=== PATIENT | female | born 1975 | race Asian ===

== ENCOUNTER 2017-03-30 07:56 | Day surgery (SDC) | payer BC, SELFPAY ==
[2017-03-27 12:58] VITALS: BMI 16.4
[2017-03-30] VITALS (14 sets, daily range): BP systolic 87–145; BP diastolic 43–68; PULSE 47–78; RESP 15–26; TEMP 37.1–37.2; O2SAT 98–100
[2017-03-30 09:11] LABS: Urine Pregnancy, HCG Qual. Negative (Negative)
--- NOTE | 2017-03-30 09:32 | HMH.PROC ---
[facility] Procedure Note Procedure Note:: Colonoscopy Procedure Report: Colonoscopy with cold biopsies Endoscopist: Govind Nelson II, MD Referring physician: Antonio Mendoza MD Date of Procedure: March 30, 2017 Equipment: Olympus 180 variable stiffness pediatric colonoscope Sedation: Fentanyl 100 mg IV/ Versed 7 mg IV Indication: Mrs. Toribio is a 41-year-old [place] female who has had abdominal pain primarily in the right lower abdomen but some left lower abdominal discomfort. She does have some straining and incomplete defecation. She has noted some external hemorrhoids and some bright red bleeding from internal hemorrhoids. She did have some testing in her country of [facility] but has not had any prior colonoscopy. She did have a transvaginal ultrasound by her primary care physician which was negative. She does state that her pain is worsened after her menstrual cycle. The patient reports no weight loss or change in bowel habits. She reports no family history of colon cancer but her grandfather had liver cancer. Procedure: Prior to the procedure, a history and physical exam was performed, and patient's medications and allergies were reviewed. The risks, benefits and alternatives of the sedation and procedure were discussed with the patient. All questions were answered and informed consent was obtained. The patient was brought to the procedure room. Patient identification and proposed procedure were verified by the physician and the nurse. The patient was placed in a left lateral decubitus position and the scope was passed under direct vision. Throughout the procedure, the patient's blood pressure, pulse, and oxygen saturations were monitored continuously. The colonoscopy was accomplished without difficulty. The patient tolerated the procedure well. Findings: On digital rectal examination there was normal rectal tone. There were no external hemorrhoids except for hemorrhoidal tags. The colonoscope was introduced through the anal canal to the rectum and advanced to the cecum. The ileocecal valve and appendiceal orifice were identified. The scope was advanced a short distance into the ileum which appeared grossly normal. The scope was then withdrawn into the colon. There were a few isolated diverticuli in the right colon. The remainder of the tragus descending and sigmoid colon were normal. In the proximal rectum near the rectosigmoid junction was rectal ulceration that was superficial and ipsilateral with minimal margination or irregularity (appears as benign ulcers). Multiple biopsies were obtained. Digitally, there was a very angulated puborectalis angle and no mass palpable in this region. Upon retroflexion there were grade 1 internal hemorrhoids. Impression: 1. Rectal/rectosigmoid benign appearing ulceration with probable SRUS (solitary rectal ulcer syndrome) and angulated puborectalis 2. Mild right-sided diverticulosis 3. Small grade 1 internal hemorrhoids with external hemorrhoidal tags Plan: Solitary rectal ulcer syndrome is an uncommon benign disease characterized by histologic abnormalities that hopefully are delineated on biopsies which I have obtained. Man and women are affected equally. Clinical features include rectal bleeding with mucus and straining. Some persons often feel abdominal pain and incomplete defecation. She has all of these symptoms. There is often diffuse collagen deposition in the lamina propria with abnormal smooth muscle fiber extensions. The etiology remains obscure and is often associated with pelvic floor disorders. The choice of treatment often depends upon the severity of the symptoms. I would encourage high-fiber diet, avoidance of straining and bulk fiber supplementation. We will discuss dietary measures. I would consider pelvic floor physical therapy.
--- NOTE | 2017-03-30 09:41 | P.PCN_ITS ---
[facility] Procedure Note Procedure Note:: Colonoscopy Procedure Report: Colonoscopy with cold biopsies Endoscopist: Govind Nelson II, MD Referring physician: Antonio Mendoza MD Date of Procedure: March 30, 2017 Equipment: Olympus 180 variable stiffness pediatric colonoscope Sedation: Fentanyl 100 mg IV/ Versed 7 mg IV Indication: Mrs. Toribio is a 41-year-old [place] female who has had abdominal pain primarily in the right lower abdomen but some left lower abdominal discomfort. She does have some straining and incomplete defecation. She has noted some external hemorrhoids and some bright red bleeding from internal hemorrhoids. She did have some testing in her country of [facility] but has not had any prior colonoscopy. She did have a transvaginal ultrasound by her primary care physician which was negative. She does state that her pain is worsened after her menstrual cycle. The patient reports no weight loss or change in bowel habits. She reports no family history of colon cancer but her grandfather had liver cancer. Procedure: Prior to the procedure, a history and physical exam was performed, and patient' s medications and allergies were reviewed. The risks, benefits and alternatives of the sedation and procedure were discussed with the patient. All questions were answered and informed consent was obtained. The patient was brought to the procedure room. Patient identification and proposed procedure were verified by the physician and the nurse. The patient was placed in a left lateral decubitus position and the scope was passed under direct vision. Throughout the procedure, the patient's blood pressure, pulse, and oxygen saturations were monitored continuously. The colonoscopy was accomplished without difficulty. The patient tolerated the procedure well. Findings: On digital rectal examination there was normal rectal tone. There were no external hemorrhoids except for hemorrhoidal tags. The colonoscope was introduced through the anal canal to the rectum and advanced to the cecum. The ileocecal valve and appendiceal orifice were identified. The scope was advanced a short distance into the ileum which appeared grossly normal. The scope was then withdrawn into the colon. There were a few isolated diverticuli in the right colon. The remainder of the tragus descending and sigmoid colon were normal. In the proximal rectum near the rectosigmoid junction was rectal ulceration that was superficial and ipsilateral with minimal margination or irregularity (appears as benign ulcers). Multiple biopsies were obtained. Digitally, there was a very angulated puborectalis angle and no mass palpable in this region. Upon retroflexion there were grade 1 internal hemorrhoids. Impression: 1. Rectal/rectosigmoid benign appearing ulceration with probable SRUS ( solitary rectal ulcer syndrome) and angulated puborectalis 2. Mild right-sided diverticulosis 3. Small grade 1 internal hemorrhoids with external hemorrhoidal tags Plan: Solitary rectal ulcer syndrome is an uncommon benign disease characterized by histologic abnormalities that hopefully are delineated on biopsies which I have obtained. Man and women are affected equally. Clinical features include rectal bleeding with mucus and straining. Some persons often feel abdominal pain and incomplete defecation. She has all of these symptoms. There is often diffuse collagen deposition in the lamina propria with abnormal smooth muscle fiber extensions. The etiology remains obscure and is often associated with pelvic floor disorders. The choice of treatment often depends upon the severity of the symptoms. I would encourage high-fiber diet, avoidance of straining and bulk
--- NOTE | 2017-03-30 15:43 | PC.NURSE ---
INSTRUCTED PT MOTHER IN LAW THAT [facility] WILL MAIL PACKET TO PT AND IT WILL HAVE A MAP AND INSTRUCTIONS. FAXED DR ORDER TO [facility] [phone]. PHONE NUMBER [phone]. CALLED OFFICE TO VERIFY RECEIPT OF FAXED ORDER. VERIFIED RECEIPT!
== END 2017-03-30 11:00 | disposition home or self-care (01) ==
LOC: OUTP 07:58
PROVIDERS: PCP Family Medicine; Visit Provider Internal Medicine Gastroenterology
PROC: 0DJD8ZZ Inspection of Lower Intestinal Tract, Via Natural or Artificial Opening Endoscopic (ICD-10-PCS; CPT 45378; principal; 2017-03-30 09:00)
DX: K62.6 Ulcer of anus and rectum (principal); K57.30 Diverticulosis of large intestine without perforation or abscess without bleeding; K64.0 First degree hemorrhoids
CPT/HCPCS: 45380; 81025; 99152; 99153

== ENCOUNTER → 2021-12-23 11:02 | Outpatient (CLI) | payer BC, SELFPAY ==
--- NOTE | 2021-12-23 11:17 | XR_ITS ---
FINAL REPORT CLINICAL HISTORY: R/O FRACTURE FINDINGS: Right ankle Three views were obtained. There is no acute fracture or dislocation. The joint spaces appear normal. There is chronic calcification inferior to the lateral malleolus. IMPRESSION: No acute process. Reviewed, Interpreted and Dictated by Aakash Carr III, MD Transcribed by Dipti Ogden Authenticated and [facility]
== END ==
PROVIDERS: PCP Family Medicine
DX: M25.571 Pain in right ankle and joints of right foot (principal)
CPT/HCPCS: 73610